=== PATIENT | male | born 1995 | race Caucasian/White ===

== ENCOUNTER 2020-03-27 23:01 | Emergency (ER) | payer MEDICAID ==
[~2020-03-27] VITALS: Ht 185.4 cm; Wt 56.2 kg
[~2020-03-27 23:01] MED LIST: CLOT15CR74 TP
[2020-03-28] MEDS ORDERED: clindamycin 150mg capsule PO ONE (00:25)
[2020-03-28] MEDS ORDERED: CLIN150C8 PO (00:27)
[2020-03-28 00:43] VITALS: BP 126/63
== END 2020-03-28 00:45 | disposition home or self-care (01) ==
LOC: EDSEX 23:02 → ER 23:02
DX: L02.414 Cutaneous abscess of left upper limb (principal); F12.90 Cannabis use, unspecified, uncomplicated; Z79.899 Other long term (current) drug therapy
CPT/HCPCS: 10060; 99283